=== PATIENT | female | born 1985 | race Two or more races ===

== ENCOUNTER 2016-12-18 13:56 | Emergency (ER) | payer OTHER, MEDICAID ==
[~2016-12-18] VITALS: Ht 167.6 cm; Wt 70.8 kg
[~2016-12-18 13:56] MED LIST: ACYCLOVIR200 MG PO; BACTRIM DS TAB1 EAC1 ORAL; BENADRYL25 MG ORAL; CEPHALEXIN500 MG ORAL; IBUPROFEN800 MG ORAL; KEFLEX500 MG PO; KENALOG 0.1% CR15 GM APPLIC; NORCO 5-325 TA1 EACH PO; SEPTRA DS TABL1 EACH PO; VAGINAL ITCH CR30 GM TP
[2016-12-18 14:20] VITALS: BP 118/56
--- NOTE | 2016-12-18 14:30 | Emergency Room Report ---
History of Present Illness General Chief Complaint: Vaginal Source: Patient Present Illness HPI 31-year-old female presents to emergency Department complaining of a swollen hard nodule on the external left side of the labia x1 month. Patient states it is mildly progressed in size denies fevers chills or pain. Patient does report some mild erythema to the area. Patient reports a history of abscesses in the past which required I and D. in addition to ingrown hairs. Patient denies any compromise. Patient also reports intermittent itchy rash in the inguinal area/ thigh that typically is treated by her PCP with clotrimazole patient states she needs a refill of her topical cream. Denies CP, Palpitations, LOC, AMS, dizziness, Changes in Vision, Sensation, paresthesias, or a sudden severe headache. She denies , patient denies nausea or vomiting, and states she recently was treated with a course of Cipro for UTI patient was having significant dysuria and states that her urinary symptoms have subsided after course of ciprofloxacin. Allergies: Coded Allergies: No Known Allergies (Unverified , 08/03/12) Patient History Past Medical History: see triage record Past Surgical History: none Pertinent Family History: none Last Menstrual Period: 12/03/16 Now: No Immunizations: UTD Reviewed Nursing Documentation: PMH: Agreed, PSxH: Agreed Nursing Documentation-PMH Past Medical History: No Stated History Review of Systems All Other Systems: negative except mentioned in HPI Physical Exam Vital Signs Date Time Temp Pulse Resp B/P Pulse Ox O2 Delivery O2 Flow Rate FiO2 12/18/16 14:05 98.1 16 118/56 98 12/18/16 14:20 68 Sp02 EP Interpretation: reviewed, normal General Appearance: no apparent distress, alert, GCS 15, non-toxic Head: normocephalic, atraumatic Eyes: bilateral eye PERRL, bilateral eye normal inspection ENT: hearing grossly normal, normal pharynx, no angioedema, normal voice Neck: full range of motion, supple/symm/no masses Respiratory: chest non-tender, lungs clear, normal breath sounds, speaking full sentences Cardiovascular #1: regular rate, rhythm, no edema Rectal: deferred Musculoskeletal: back normal, gait/station normal, normal range of motion, non- tender, no calf tenderness Neurologic: alert, oriented x3, responsive, motor strength/tone normal, sensory intact, speech normal Psychiatric: judgement/insight normal, memory normal, mood/affect normal, no suicidal/homicidal ideation Skin: normal color, no rash, warm/dry, well hydrated, rash - pt. has a mild rash in the inner right thigh, with a macerated appearance consistent for yeast dermatitis/fungal. area is approximately 2 cm x 1cm , other - abscess noted to the external left labia approximately 1.5 cm in size. mild erythma noted. no LAD Lymphatic: no adenopathy Procedures Incision and Drainage Incision and Drainage : Consent: Verbal Blade Size: 11 I & D Procedure: betadine prep Wound Location: other - left external labia Wound's Depth, Shape: superficial Wound Length (cm): 1 Wound Explored: contaminated - purulent d/c noted Anesthesia: Lidocaine w/ Epi Volume Anesthetic (ccs): 2 Splint Applied?: No Sling Applied?: No Patient Tolerated: Well Complications: None Medical Decision Making PA Attestation Dr. Menon is my supervising Physician whom patient management has been discussed with. Diagnostic Impression: Primary Impression: Abscess Additional Impression: Rash of groin ER Course Pt. presents to the ED c/o swelling, and erythema of the left external labia. Ddx considered but are not limited to cellulitis, abscess, cystic acne, necrotizing fasciitis, insect bite, LGV Vital signs: are WNL, pt. is afebrile H&PE are most consistent with abscess of skin , possible ingrown hair. the right inner thigh/groin has small macerated rash consistent with yeast dermatitis. ORDERS: none required at this time, the diagnosis is clinical ED INTERVENTIONS: -I & D.- pt tolerated well, no complications. -Sterile dressing is applied by ED Nurse. DISCHARGE: At this time pt. is stable for d/c to home. Will provide printed patient care instructions, and any necessary prescriptions. Care plan and follow up instructions have been discussed with the patient prior to discharge. Last Vital Signs Date Time Temp Pulse Resp B/P Pulse Ox O2 Delivery O2 Flow Rate FiO2 12/18/16 14:20 98.1 68 16 118/56 98 Disposition: HOME, SELF-CARE Condition: Stable Scripts Acetaminophen* (TYLENOL EXTRA STRENGTH*) 500 Mg Tablet 500 MG ORAL Q8H, #30 TAB 0 Refills Prov: Deepika Mcdonald 12/18/16 Clotrimazole* (LOTRIMIN*) 15 Gm Cream..g. 1 APPLIC TOPIC TWICE A DAY, #15 GM Prov: Deepika Mcdonald 12/18/16 Cephalexin* (KEFLEX*) 500 Mg Capsule 500 MG ORAL EVERY 12 HOURS for 7 Days, #14 CAP 0 Refills Prov: Deepika Mcdonald 12/18/16 Patient Instructions: Incision and Drainage, Care After Additional Instructions: Take medications as directed. Follow up with PCP in 3-5 days Return sooner to ED if new symptoms occur, or current symptoms become worse. Deepika Mcdonald Dec 18, 2016 14:30
[2016-12-18] MEDS ORDERED: CEPHALEXIN500 MG ORAL (14:31)
[2016-12-18] MEDS ORDERED: CLOTRIMAZOLE15 GM TOPIC (14:31)
[2016-12-18] MEDS ORDERED: TYLENOL EXTRA500 MG ORAL (14:57)
[2016-12-18 15:06] VITALS: BP 112/60
[2016-12-18 15:08] VITALS: BP 112/60
== END 2016-12-18 15:54 | disposition home or self-care (01) ==
LOC: EMR 15:10
DX: N76.4 Abscess of vulva (principal); R21 Rash and other nonspecific skin eruption
CPT/HCPCS: 10060

== ENCOUNTER 2019-10-05 21:19 | Emergency (ER) | payer BC, MEDICAID ==
[~2019-10-05] VITALS: Ht 167.6 cm; Wt 70.8 kg
[~2019-10-05 21:19] MED LIST changes: +CLOTRIMAZOLE15 GM TOPIC; +TYLENOL EXTRA500 MG ORAL
--- NOTE | 2019-10-05 21:32 | NUR ---
ED Nurse Note: pt presents to ED c/o sore throat x 1 week. pt states that it hurts to swallow and rates the px a 9/10. pt reports taking "home remedies" without relief of symptoms. she denies any SOB or difficulty breathing at this time.
[2019-10-05 22:00] VITALS: BP 131/83
[2019-10-05] MEDS ORDERED: IBUPROFEN600 MG ORAL (22:27)
[2019-10-05] MEDS ORDERED: HYDROCODON-ACE1 EA15 ORAL (22:27)
[2019-10-05] MEDS ORDERED: ZITHROMAX250 MG ORAL (22:27)
--- NOTE | 2019-10-05 22:28 | Emergency Room Report ---
History of Present Illness General Chief Complaint: Sore Throat Source: Patient Present Illness [facility] This is a 33-year-old female with no past medical history. She presents with chief complaint of sore throat. This been ongoing for a week. Worse with swallowing. Pain is 9 out of 10. No nausea no vomiting. No drooling. Subjective fever. No cough congestion. [id number] medicine not helping. Allergies: Coded Allergies: No Known Allergies (Unverified , 08/03/12) Patient History Past Medical History: see triage record, old chart reviewed Past Surgical History: none Pertinent Family History: none Social History: Denies: smoking Last Menstrual Period: 09/06/19 Now: No Immunizations: other Reviewed Nursing Documentation: PMH: Agreed; PSxH: Agreed Nursing Documentation-PMH Past Medical History: No Stated History Review of Systems Constitutional: Reports: fever Eye: Denies: eye pain, blurred vision ENT: Reports: throat pain; Denies: ear pain, nose congestion, throat swelling Respiratory: Denies: cough, shortness of breath Cardiovascular: Denies: chest pain, palpitations Gastrointestinal: Denies: abdominal pain, diarrhea, nausea, vomiting Musculoskeletal: Denies: back pain, joint pain Skin: Denies: rash Neurological: Denies: headache, numbness Endocrine: Denies: increased thirst, increased urine Hematologic/Lymphatic: Denies: easy bruising All Other Systems: negative except mentioned in HPI Physical Exam Vital Signs Date Time Temp Pulse Resp B/P (MAP) Pulse Ox O2 Delivery O2 Flow Rate FiO2 10/05/19 21:41 98.1 78 17 131/83 (99) 100 Room Air Vitals normal Sp02 EP Interpretation: reviewed, normal General Appearance: well appearing, no apparent distress, alert Head: normocephalic, atraumatic Eyes: bilateral eye PERRL, bilateral eye EOMI ENT: hearing grossly normal, pharyngeal erythema Neck: full range of motion, supple, no meningismus Respiratory: chest non-tender, lungs clear, normal breath sounds Cardiovascular #1: regular rate, rhythm, no murmur Gastrointestinal: normal bowel sounds, non tender, no mass, no organomegaly, no bruit, non-distended Musculoskeletal: back normal, gait/station normal, normal range of motion Psychiatric: mood/affect normal Medical Decision Making Diagnostic Impression: Primary Impression: Pharyngitis, acute Qualified Codes: J02.9 - Acute pharyngitis, unspecified ER Course Patient presents with acute pharyngitis. Most likely viral but been ongoing for a week, will put him on antibiotics. No evidence of peritonsillar abscess. No evidence of retropharyngeal abscess or Boyd angina. Last Vital Signs Date Time Temp Pulse Resp B/P (MAP) Pulse Ox O2 Delivery O2 Flow Rate FiO2 10/05/19 21:41 98.1 78 17 131/83 (99) 100 Room Air Status: improved Disposition: HOME, SELF-CARE Condition: Stable Scripts Azithromycin* (ZITHROMAX*) 250 Mg Tablet 250 MG ORAL DAILY, #6 TAB 0 Refills Take two tables once daily for 1 day, then one tablet once daily for 4 days. Prov: Theron Odom MD 10/05/19 Ibuprofen* (MOTRIN*) 600 Mg Tablet 600 MG ORAL THREE TIMES A DAY, #30 TAB 0 Refills Prov: Theron Odom MD 10/05/19 Hydrocodone/Acetaminophen 5-325* (HYDROCODONE/ACETAMINOPHEN 5-325*) 1 Each Tablet 1 TAB ORAL Q6H PRN for For Pain, #15 TAB 0 Refills Prov: Theron Odom MD 10/05/19 Patient Instructions: Sore Throat Additional Instructions: Increase fluids. Salt water gargle. Follow-up with your doctor in 7 days. Return if worse. Theron Odom MD Oct 05, 2019 22:28
[2019-10-05] MEDS ORDERED: HYDROcodone/Acetamin 5/325 tab ORAL ONE (22:30)
[2019-10-05 22:34] VITALS: BP 135/90
--- NOTE | 2019-10-05 22:35 | NUR ---
ER DISCHARGE NOTE: Patient is cleared to be discharged per ERMD, pt is aox4, on room air, with stable vital signs. pt was given dc and prescription instructions, pt was able to verbalize understanding, pt id band removed without complications. pt is able to ambulate with steady gait. pt took all belongings.
[2019-10-05] MEDS ORDERED: NIZORAL 2% C1 APPLIC TOPIC (22:38)
== END 2019-10-05 22:35 | disposition home or self-care (01) ==
LOC: EMR 22:09
DX: J02.9 Acute pharyngitis, unspecified (principal)
CPT/HCPCS: 99282; J7512